=== PATIENT | male | born 1940 | race Two or more races ===

== ENCOUNTER 2023-01-30 07:07 | Day surgery (SDC) | payer OTHER ==
[2023-01-30] VITALS (7 sets, daily range): BP systolic 118–146; BP diastolic 67–81
[~2023-01-30] VITALS: Ht 167.6 cm; Wt 77.6 kg
[~2023-01-30 07:07] MED LIST: ALBU108A14 IN; ASPI1TAB19 PO; EPIN0.12 IN; PRAV20TA3 PO
[2023-01-30] MEDS ORDERED: LIDOCAINE 2%HCL (LOCAL ANESTH.) INJ 20ML MDV ONE (07:41)
[2023-01-30] MEDS ORDERED: IODIXANOL 320MG/ML 100ML BTL IV ONE (07:41)
[2023-01-30] MEDS ORDERED: SODIUM CHL 0.9% 0 ML ONE (08:14)
[2023-01-30] MEDS ORDERED: ANGIOMAX 250 MG VIAL IV ONE (08:14)
[2023-01-30] MEDS ORDERED: MIDAZOLAM HCL 2MG/2ML 2ml VIAL (1mg/ml) ONE (08:14)
[2023-01-30] MEDS ORDERED: fentaNYL CITRATE 100 MCG/2 ML VL ONE (08:14)
[2023-01-30] MEDS ORDERED: VERAPAMIL 2.5MG/ML INJ 2ML VIAL IV ONE (08:14)
[2023-01-30] MEDS ORDERED: SODIUM CHL 0.9% 50 ML ONE (08:15)
[2023-01-30] MEDS ORDERED: HEPARIN SODIUM (PORCINE) 5000 UNITS/ML 1ML VIAL ONE (08:34)
== END 2023-01-30 10:50 | disposition home or self-care (01) ==
LOC: CATH 07:07
PROVIDERS: ATTEND Internal Medicine
DX: I25.10 Atherosclerotic heart disease of native coronary artery without angina pectoris (principal); Z79.82 Long term (current) use of aspirin; Z87.891 Personal history of nicotine dependence
CPT/HCPCS: 93005; 93306; 93458; C1725; C1894; J1644; J2250; J3010; Q9967; 99152